=== PATIENT | female | born 1935 | race Caucasian/White ===

== ENCOUNTER 2021-08-04 10:19 | Outpatient (CLI) | payer MEDICARE, SELFPAY ==
--- NOTE | 2021-08-04 | ECG_ITS ---
Measurements Intervals [place] Rate: 52 P: 65 [place]: 223 QRS: 32 QRSD: 98 T: 31 QT: 448 QTc: 420 Interpretive Statements SINUS BRADYCARDIA WITH FIRST DEGREE AV BLOCK CANNOT RULE OUT SEPTAL INFARCT, AGE INDETERMINATE BORDERLINE ST ABNORMALITY- INF/LAT LEADS ABNORMAL ECG Electronically Signed On 08-04-2021 11:02:29 CORPORATE CLAIMS EXAMINER by Sidney Bucio D.O.
[2021-08-04 11:05] LABS: Hematocrit 35.9 % (37.0-47.0); Hemoglobin 11.8 g/dL (12.0-15.0)
[2021-08-04 11:21] LABS: Albumin Level 3.7 g/dL (3.5-5.1); Estimated Glomerular Filt Rate > 60; Glucose 106 mg/dL (65-110)
== END 2021-08-04 10:20 | disposition home or self-care (01) ==
PROVIDERS: PCP Internal Medicine; Visit Provider Orthopaedic Surgery
DX: Z01.818 Encounter for other preprocedural examination (principal); M17.12 Unilateral primary osteoarthritis, left knee; R94.31 Abnormal electrocardiogram [ECG] [EKG]
CPT/HCPCS: 36415; 82040; 82565; 82947; 85014; 85018; 93005

== ENCOUNTER 2022-10-14 10:26 | Outpatient (CLI) | payer MEDICARE, SELFPAY ==
--- NOTE | 2022-10-14 11:00 | ECG_ITS ---
Measurements Intervals [place] Rate: 48 P: 67 [place]: 223 QRS: 2 QRSD: 97 T: 39 QT: 452 QTc: 407 Interpretive Statements SINUS BRADYCARDIA WITH FIRST DEGREE AV BLOCK COMPARED TO ECG 08/04/2021 10:59:25 NO SIGNIFICANT CHANGES Electronically Signed On 10-14-2022 12:58:27 CDT by Miriam Segundo M.D.
[2022-10-14 11:05] LABS: Hematocrit 37.8 % (37.0-47.0); Hemoglobin 12.2 g/dL (12.0-15.0)
[2022-10-14 11:17] LABS: Albumin Level 4.1 g/dL (3.5-5.1); Estimated Glomerular Filt Rate > 60; Glucose 103 mg/dL (65-110)
== END 2022-10-14 10:27 | disposition home or self-care (01) ==
PROVIDERS: PCP Internal Medicine; Visit Provider Orthopaedic Surgery
DX: M17.12 Unilateral primary osteoarthritis, left knee (principal); I10 Essential (primary) hypertension; I44.0 Atrioventricular block, first degree
CPT/HCPCS: 36415; 82040; 82565; 82947; 85014; 85018; 93005

== ENCOUNTER 2022-11-07 10:47 | Outpatient (CLI) | payer MEDICARE, SELFPAY ==
[2022-11-07 12:22] LABS: Basophils Percent Auto 0.8 % (0.2-1.2); Eosinophils Absolute Auto 0.1 K/mm3 (0-0.3); Eosinophils Percent Auto 2.1 % (0-4.4); Hematocrit 37.8 % (37.0-47.0); Hemoglobin 12.4 g/dL (12.0-15.0); Immature Granulocyte Absolute 0.03 K/mm3 (0.00-0.031); Immature Granulocyte Percent A 0.6 % (0-0.5); Lymphocytes Absolute Auto 0.98 K/mm3 (0.9-3.2); Lymphocytes Percent Auto 18.5 % (18.3-44.2); Mean Corpuscular HGB Conc 32.8 g/dl (32-36); Mean Corpuscular Hemoglobin 29.1 pg (26-34); Mean Corpuscular Volume 88.7 fl (80-100); Mean Platelet Volume 9.6 fl (7.4-10.4); Monocytes Absolute Auto 0.5 K/mm3 (0.1-0.6); Monocytes Percent Auto 9.6 % (2.6-8.5); Neutrophils Absolute Auto 3.6 K/mm3 (1.3-6.7); Neutrophils Percent Auto 68.4 % (45.5-73.1); Platelet Count Result 204 k/mm3 (150-375); Red Blood Count 4.26 M/mm3 (4.2-5.4); Red Cell Distribution Width 12.9 % (11.5-14.5); White Blood Count 5.3 K/mm3 (4.5-10.0)
[2022-11-07 12:42] LABS: Urine Cotinine NEGATIVE
== END 2022-11-07 10:48 | disposition home or self-care (01) ==
PROVIDERS: Visit Provider Orthopaedic Surgery
DX: M17.12 Unilateral primary osteoarthritis, left knee (principal); Z01.818 Encounter for other preprocedural examination
CPT/HCPCS: 80307; 85025; 87081

== ENCOUNTER 2022-12-06 00:59 | Day surgery (SDC) | payer MEDICARE, SELFPAY ==
[2022-11-07 11:07] VITALS: BMI 21.8
--- NOTE | 2022-11-07 11:24 | PC.NURSE ---
Report to the Outpatient Waiting Room, entrance under the green pavilion located off [facility], at time _0830 on date __12/06/22 . Planned Procedure Time: __1030 . Time changes happen often and if your time is changed the preop area will call you the afternoon before. - You and your visitor will be asked to self-screen and do not enter if you have any COVID symptoms. - A mask is optional within the hospital at this time. Patients may have clear liquids (water, carbonated beverages, clear teas, apple juice) until 3 hours prior to surgery with a maximum of 20 ounces. - No food from midnight until time of surgery - Infants may have breast milk until 4 hours before surgery, infant formula 6 hours prior to surgery. - Children will be allowed to drink immediately following surgery. If applicable, please bring a bottle or sippy cup to assist with drinking. Juice, water, soda, and popsicles are readily available. For infants on formula, please bring formula the day of surgery. Pacifiers are allowed. Take the following medications with a SIP of water the morning of surgery: ____NONE DO NOT STOP ANY OF YOUR OTHER PRESCRIPTION MEDICATIONS PRIOR TO SURGERY ?EXCEPT THE FOLLOWING Medications to discontinue per physician __HOLD ASPIRIN 7 DAYS PRE OP_PER DR STOCK.LAST DOSE 11/28/22. ALL VITAMINS/SUPPLEMENTS 3 DAYS PRE OP.LAST DOSE 12/02/22 Date to take last dose TOTAL JOINT CLASS 11/23/22 AT 10 AM Please no make-up, nail azeri, hairspray, perfume, deodorant, or body powder the day of surgery. No jewelry (including any body piercings) or valuables the day of surgery, leave them at home. Please take a shower or bath the night before, or the morning of, surgery with an antibacterial soap. Wear comfortable, loose fitting clothing. Children are encouraged to wear pajamas. - Jewelry must be removed prior to entering the operating room. Rings and piercings that are not removed may be cut off. - The hospital will not accept responsibility for valuables. - Please leave all valuables, including medications, at home the day of surgery. If you are going home after surgery, a licensed medical driver must drive you home. - NO public transportation without another adult if you receive anesthesia. - We recommend that an adult stay with you for 24 hours following discharge. - We also recommend that you do not drive, make important decision, drink alcoholic beverages, or take any drugs that were not prescribed by your health care provider for at least 24 hours after your discharge time. For Pediatric surgeries, we recommend two adults accompany the child home. Follow any additional instructions given to you from your surgeon. If you or anyone in your household have experienced Covid symptoms in the past week, please notify your surgeon or the nurse liaison at the phone number below for possible testing. VERBAL AND WRITTEN instructions given to ___PATIENT and asked if any additional questions and then verbalized understanding. Patient advised to call surgeon office or pre surgery nurse liaison [phone] if any additional questions.
[2022-11-07 12:27] VITALS: BP 167/69; PULSE 61; RESP 18; TEMP 36.6; O2SAT 99
--- NOTE | 2022-12-05 13:11 | WPDANESEPPF ---
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 Patient Data Age: 87 Gender: F Height: 1.63 m Weight: 57.7 kg Last Vital Signs Temp 36.6 C 11/07/22 12:27 Pulse 61 11/07/22 12:27 Resp 18 11/07/22 12:27 BP 167/69 H 11/07/22 12:27 Pulse Ox 99 11/07/22 12:27 O2 Del Method Room Air 11/07/22 12:27 Allergies Allergy/AdvReac Type Severity Reaction Status Date / Time No Known Allergies Allergy Verified 12/06/22 09:36 Home Medications Medication Instructions Recorded Confirmed Type aspirin 81 mg tablet,delayed 81 mg PO DAILY 11/09/20 12/01/22 History release (Adult Aspirin Regimen) atorvastatin 10 mg tablet 10 mg PO DAILY 11/09/20 12/01/22 History ezetimibe 10 mg tablet 10 mg PO DAILY 11/09/20 12/01/22 History lisinopril 30 mg tablet 30 mg PO DAILY 11/09/20 12/01/22 History propranolol 80 mg tablet 80 mg PO Q12H 11/09/20 12/01/22 History acetaminophen 500 mg capsule 500 mg PO Q6H PRN Pain 11/07/22 12/01/22 History ascorbic acid (vitamin C) 1,000 mg 1 g PO DAILY 11/07/22 12/01/22 History tablet cholecalciferol (vitamin D3) 25 25 mcg PO DAILY 11/07/22 12/01/22 History mcg (1,000 unit) tablet vitamin A 2,400 mcg capsule 2,400 mcg PO DAILY 11/07/22 12/01/22 History mupirocin 2 % topical ointment 1 applic topical TID #15 grams 11/09/22 12/01/22 Rx sulfamethoxazole 800 1 tablet PO Q12H #10 tabs 11/09/22 12/01/22 Rx mg-trimethoprim 160 mg tablet (Bactrim DS) Patient hx anesthesia problems: none Family hx anesthesia problems: none Results Review: All pre-operative results and documents have been reviewed as part of the pre-operative evaluation. [facility] Past Medical History Medical History (Updated 12/06/22 @ 09:59 by Maged Barker DO) First degree AV block Hammer toe of left foot Hypertension Mitral valve prolapse Patient informed us of this diagnosis. Surgical History Surgical History H/O breast surgery cyst removals (not cancerous) History of hysterectomy Hx of cataract surgery Hx of tonsillectomy Social History Social History Smoking status: Never smoker Additional smoking assessment comments: DENIES ANY FORM OF TOBACCO USE Alcohol intake: never Lack of Transportation: No Lack of Food: Never True Current Housing: I Have Housing Concerned About Future Housing: No Difficulty Paying Gas/Electric Bills: No Difficulty Paying for Meds: No Currently Unemployed: No Education: Trade/Vocational Certificate Difficulty w/ Childcare or Family Care: No Living arrangements: with family Spiritual care concerns: No Anes - Eval Final PreProcedure Day of Procedure 12/05/22 13:11 Patient weight: normal Heart: regular rate and rhythm Lungs: clear to auscultation Airway: Mallampati scale class II Neurological: alert and oriented Last oral intake: >/= 8 hours ASA classification: III Emergent: no Anesthetic plan: proceed Anesthesia type and monitoring: general LMA and standard monitoring Results Review: All pre-operative results and documents have been reviewed as part of the pre-operative evaluation. Informed Consent: The patient's anesthetic plan and its attendant risks and benefits were discussed with the patient/family/POA. Questions were solicited and answers provided to the satisfaction of the patient/family/POA.
[2022-12-06] VITALS (11 sets, daily range): BP systolic 128–142; BP diastolic 55–76; PULSE 45–68; RESP 10–16; TEMP 36.4–37.1; O2SAT 95–100
--- NOTE | ~2022-12-06 | XR_ITS ---
EXAMINATION: [id number] DATE: 12/06/2022 13:40 CDT INDICATION: Left total knee arthroplasty TECHNIQUE: 2 views left knee FINDINGS: There is a left total knee arthroplasty in expected position. Subcutaneous gas with fluid and air in the joint are consistent with recent surgery. No evidence of periprosthetic fracture. IMPRESSION: 1. Recent left total knee arthroplasty. Reviewed, dictated and finalized at location L.
--- NOTE | 2022-12-06 07:18 | WPDHPUPDATE1 ---
History and Physical Update Update Date/Time: 12/06/22 07:18 History and Physical has been reviewed, including an updated exam of the patient. There are NO changes in the patient's condition. Risks, benefits, and alternatives have been discussed and questions answered. Patient agrees to proceed with procedure.
[2022-12-06] MEDS: ACETAMINOPHEN 500 MG TABLET 1000 MG PO (09:00)
[2022-12-06] MEDS: LACTATED RINGERS 1,000 ML 30 ML IV CONT ×2 (09:00→10:54)
[2022-12-06] MEDS: TRANEXAMIC ACID 1,000MG/ISO100 1,000 MG/100 ML BAG 200 MG IVPB (10:30)
--- NOTE | 2022-12-06 10:42 | WPDANESPNB ---
Anes - Peripheral Nerve Block Date/Time: 12/06/22 10:42 I have discussed with the patient/family/POA the placement of a peripheral nerve block for post-operative pain management, including associated risks, benefits, complications, and side effects. Alternative methods of post-operative analgesia were detailed. Questions were solicited and answers provided to the satisfaction of the patient/family/POA. Time-Out: A pre-procedural Time-Out was completed immediately before starting the procedure and confirmed: Patient Identification, Site, Procedure, Patient Position and the Availability of Requisite Equipment. Clinical Indications: Acute post-operative pain management requested by the operative surgeon. Nerve Block Insertion Note Anes-nerve block: adductor canal left Patient position: supine Skin prep: chlorhexidine Needle: 22 gauge, stimulating, insulated echogenic needle. Needle length: 80 mm Technique: ultrasound Injectate: bupivacaine 0.5% with epi 5 mcg/ml (30cc - no epi) Observations: tolerated well Complications: none Procedure start time:: 1026 Procedure end time:: 102
[2022-12-06] MEDS: ceFAZolin 2 GM/D5W 50 ML 2 GM/50 ML BAG IVPB (10:52)
[2022-12-06] MEDS: GENTAMICIN BONE CEMENT REFOBACIN 1 EACH TOPICAL (12:21)
--- NOTE | 2022-12-06 12:55 | P.OP_ITS ---
Procedure Note - Detailed Date of Procedure 12/06/22 Pre-op Diagnosis primary oa left knee Post-op Diagnosis Same Procedure Performed Total knee arthroplasty, left. Surgeon Blaine Salgado MD Anesthesia General and Regional (subsartorial block) Findings Good bone quality. Extensor mechanism contracture. Valgus disease. Minimal release of IT band. Posterior stabilized. Conservative bone resections. Description of Procedure The patient was brought to the operating room. A general anesthetic was administered. The leg was prepped and draped in the usual sterile fashion. The limb was elevated and the tourniquet inflated to 300 mmHg during initial exposur e, and cementation. A longitudinal incision was created along the medial border of the patella and patellar tendon, and a trivector approach to the knee was performed. No medial release was taken. The knee was then flexed. The osteophytes were carefully removed. The intramedullary guide was placed in the femoral canal. The distal femoral resection was then taken with the oscillating saw. The collateral ligaments were carefully protected. The tibia was carefully exposed. The jig was applied, and the proximal tibia was resected according to preoperative plan. The knee was balanced in extension. Appropriate releases were taken where needed. The anterior cruciate ligament and meniscal remnants were removed. The posterior cruciate ligament was sacrificed. The patella was measured. Patellar resection was carried out with the oscillating saw. The lug holes drilled. The femur was sized and rotation assessed using a combination of gap balancing, posterior referencing, and the AP axis. The 4 in 1 cutting block and box cut guide were used to finish the femoral cuts after equal gaps were assured. The osteophytes were carefully removed from the back of the knee. The knee was copiously irrigated with antibiotic solution periodically throughout the procedure. The meniscal remnants were removed. The spacer block was used to confirm equal flexion and extension gaps. Slight lateral release. The tibia was sized and broached. The bony surfaces were prepared for cementing with pulsatile lavage. The real tibial and femoral [and patellar ]components were cemented into position. Excess cement was carefully removed. Patellar tracking was carefully assessed. No additional releases were required. Copious irrigation then performed. The wound was closed with #1 Vicryl suture, #2, 2-0, and 3-0 barbed suture, followed by Steri-Strips. A sterile bulky dressing was applied. Meticulous hemostasis was maintained throughout the procedure. The bipolar cautery device was used. The pain relieving mixture was injected into the periarticular tissues during the procedure. There were no complications. The patient was extubated and brought to the recovery room in stable condition after the application of sterile dressing with Eliseo bandage. Implants Dragonplay Triathlon knee system, low profile cemented tibia size 4, PS femoral component size 4 ,and an 11 mm PS polyethylene insert. 32mm asymmetric all polyethylene patella component. Estimated Blood Loss 50 Tourniquet Time 59 Drains No Pathology None sent Complications No immediate complications Condition Stable Disposition PACU [facility] Billing Surgery - Charge Forward: Surgery Billing
[2022-12-06] MEDS: SENNA/DOCUSATE SODIUM TABLET 2 TAB PO (18:01)
[2022-12-06] MEDS: MELOXICAM 7.5 MG TABLET PO (18:02)
[2022-12-06] MEDS: lisinopriL 10 MG TABLET 30 MG PO (18:03)
--- NOTE | 2022-12-06 20:46 | ADMGEN ---
This patient, Rekha Pratt, was admitted to [facility] Surg Room 310-01. Patient/family oriented to hospital policies and general routines including ID bracelet, bed and alarms, visiting hours, pain management, procedures, bathroom and other care routines, personal items, smoking policy, room service/diet, and visiting hours. Information on how to activate the Rapid Response Team has been discussed. Patient/Family are encouraged to report perceived risks to care and to ask questions if they do not understand what they are told or what they should do.
[2022-12-06] MEDS: EZETIMIBE 5 MG TABLET PO (21:21)
[2022-12-06] MEDS: ceFAZolin 1 GM/NS 50 ML 1 GM/50 ML BAG IVPB (21:22)
[2022-12-07] MEDS: ceFAZolin 1 GM/NS 50 ML 1 GM/50 ML BAG IVPB ×2 (03:21→11:23)
[2022-12-07 05:00] VITALS: BP 117/42; PULSE 85; RESP 16; TEMP 36.9; O2SAT 95
[2022-12-07 07:16] LABS: Basophils Percent Auto 0.5 % (0.2-1.2); Eosinophils Percent Auto 0.2 % (0-4.4); Hematocrit 31.7 % (37.0-47.0); Hemoglobin 10.5 g/dL (12.0-15.0); Immature Granulocyte Absolute 0.03 K/mm3 (0.00-0.031); Immature Granulocyte Percent A 0.5 % (0-0.5); Lymphocytes Absolute Auto 0.77 K/mm3 (0.9-3.2); Lymphocytes Percent Auto 12.8 % (18.3-44.2); Mean Corpuscular HGB Conc 33.1 g/dl (32-36); Mean Corpuscular Hemoglobin 28.5 pg (26-34); Mean Corpuscular Volume 85.9 fl (80-100); Mean Platelet Volume 9.7 fl (7.4-10.4); Monocytes Absolute Auto 0.7 K/mm3 (0.1-0.6); Monocytes Percent Auto 12.3 % (2.6-8.5); Neutrophils Absolute Auto 4.5 K/mm3 (1.3-6.7); Neutrophils Percent Auto 73.7 % (45.5-73.1); Platelet Count Result 149 k/mm3 (150-375); Red Blood Count 3.69 M/mm3 (4.2-5.4); Red Cell Distribution Width 12.7 % (11.5-14.5)
[2022-12-07 07:22] LABS: Anion Gap 4 mmol/L (8-16); Blood Urea Nitrogen 12 mg/dL (7-17); Calcium 8.3 mg/dL (8.4-10.2); Carbon Dioxide 24 mmol/L (22-30); Chloride 97 mmol/L (98-107); Estimated CRCL calculation 57 ml/min; Estimated Glomerular Filt Rate > 60; Glucose 124 mg/dL (65-110); Potassium 4.2 mmol/L (3.4-5.0); Sodium 125 mmol/L (137-145)
[2022-12-07] MEDS: ACETAMINOPHEN 500 MG TABLET PO (08:24)
[2022-12-07] MEDS: ASCORBIC ACID 500 MG TABLET 1000 MG PO (08:25)
[2022-12-07] MEDS: MELOXICAM 7.5 MG TABLET PO (08:25)
[2022-12-07] MEDS: CHOLECALCIFEROL 1,000 UNITS TABLET 1000 UNITS PO (08:25)
--- NOTE | 2022-12-07 13:16 | PCPTNOTE ---
On 12/07/22, the student, [Daisha Tello], provided care and completed [facility] hospital documentation on this patient. I have reviewed the student's documentation and agree with the findings.
--- NOTE | 2022-12-07 16:30 | PCPTNOTE ---
On 12/07/22, the student, DAVID Mcclure, provided care and completed [facility] documentation on this patient. I have reviewed the student's documentation and agree with the findings.
== END 2022-12-07 14:30 | disposition home or self-care (01) ==
LOC: ANHSURGERY 08:34 → ANH3MEDSUR 14:56
PROVIDERS: PCP Physician Assistant; Visit Provider Orthopaedic Surgery
PROC: (CPT 27447; principal; 2022-12-06 10:30)
DX: M17.12 Unilateral primary osteoarthritis, left knee (principal); G89.18 Other acute postprocedural pain; I10 Essential (primary) hypertension; I34.1 Nonrheumatic mitral (valve) prolapse; Z79.82 Long term (current) use of aspirin; I44.0 Atrioventricular block, first degree
CPT/HCPCS: 27447; 64447; 36415; 73560; 80048; 85025; 85055; 86850; 86900; 86901; 97110; 97116; 97161; 97165; 97530; 97535; A9270; C1713; C1776; J0171; J0690; J1100; J1170; J1885; J2270; J2405; J2704; J2795; J3010; J7120

== ENCOUNTER 2023-12-06 09:55 | Outpatient (CLI) | payer MEDICARE, SELFPAY ==
--- NOTE | ~2023-12-06 | XR_ITS ---
XR knee LT 3V Ordering provider: Blaine Salgado MD History: . Z96.652 - Presence of left artificial knee joint, 1 YR . Comparison: January 25, 2023. FINDINGS: BONES: No acute fracture or dislocation. JOINT SPACES: Total knee arthroplasty. SOFT TISSUES: Normal. IMPRESSION: No acute osseous abnormality left knee. Total knee arthroplasty. Reviewed, dictated and finalized at location A.
== END 2023-12-06 09:56 | disposition home or self-care (01) ==
LOC: ANHIMG 09:56
PROVIDERS: PCP Physician Assistant; Visit Provider Orthopaedic Surgery
DX: Z96.652 Presence of left artificial knee joint (principal)
CPT/HCPCS: 73562